=== PATIENT | male | born 1985 | race Caucasian/White ===

== ENCOUNTER 2017-06-20 04:01 | Emergency (ER) | payer OTHER ==
[~2017-06-20] VITALS: Ht 180.3 cm; Wt 114.0 kg
[2017-06-20 05:23] LABS: ALBUMIN 3.9 g/dL (3.2-4.8)
[2017-06-20 05:24] LABS: CHLORIDE 109 mEq/L (99-109); POTASSIUM 4.2 mEq/L (3.7-5.4); SODIUM 137 mEq/L (136-147)
[2017-06-20 05:26] LABS: GLUCOSE 119 mg/dL (70-99); TOTAL PROTEIN 6.6 g/dL (6.4-8.3)
[2017-06-20 05:28] LABS: TOTAL BILIRUBIN 1.3 mg/dL (0.0-1.0)
[2017-06-20 05:29] LABS: ALKALINE PHOSPHATASE 55 IU/L (3-129)
[2017-06-20 05:30] LABS: CREATININE 1.1 mg/dL (0.6-1.3); GFR ESTIMATE (CALCULATED) > 59 mL/min/ (58.99-99999)
[2017-06-20 05:31] LABS: AST (GOT) 28 IU/L (2-34); UREA NITROGEN (BUN) 15 mg/dL (9-23)
[2017-06-20 05:33] LABS: ALT (GPT) 47 IU/L (3-49); LIPASE 15 U/L (1.0-51.0)
[2017-06-20 05:34] LABS: HEMATOCRIT 47.5 % (38.0-50.0); HEMOGLOBIN 16.2 G/DL (12.5-16.6); MCH 27.5 PG (29.0-34.0); MCHC 34.1 G/DL (30.0-36.0); MCV 80.6 FL (86-99); PLATELET COUNT 282 K/uL (156-360); RBC DIS.WIDTH-CV 13.7 % (11.8-14.6); RBC DIS.WIDTH-SD 39.4 % (39-53); RED BLOOD COUNT 5.89 M/uL (4.00-5.50); WHITE BLOOD COUNT 17.1 K/uL (4.1-10.2)
[2017-06-20 07:46] LABS: APPEARANCE CLEAR ((CLEAR)); BILIRUBIN NEGATIVE; BLOOD NEGATIVE; COLOR YELLOW ((YELLOW)); GLUCOSE (STRIP) NEGATIVE; KETONES 20; LEUKOCYTES NEGATIVE; NITRITE NEGATIVE; PROTEIN (STRIP) 100
[2017-06-20] MEDS ORDERED: ZOFRAN ODT4 MG PO (08:02)
[2017-06-20] MEDS ORDERED: BENTYL20 MG PO (08:03)
[2017-06-20 08:06] LABS: SPECIFIC GRAVITY > 1.060 (1.000-1.030)
[2017-06-20 08:12] LABS: BACTERIA NONE SEEN /HPF; EPITHELIAL CELLS NONE SEEN /HPF; MUCUS TRACE /LPF; RED BLOOD CELLS 0-5 /HPF (0-5); UCUL ADDED? NO; WHITE BLOOD CELLS 0-5 /HPF (0-5)
[2017-06-20 08:38] VITALS: BP 121/85
== END 2017-06-20 08:38 | disposition home or self-care (01) ==
LOC: EME 04:01
DX: E86.0 Dehydration (principal); R10.9 Unspecified abdominal pain; D72.829 Elevated white blood cell count, unspecified; F17.200 Nicotine dependence, unspecified, uncomplicated
CPT/HCPCS: 74177; 80053; 81003; 83690; 85027; 99281; 99285; J1885; J2405; J7030

== ENCOUNTER 2017-06-30 20:55 | Emergency (ER) | payer OTHER ==
[~2017-06-30] VITALS: Ht 180.3 cm; Wt 116.1 kg
[~2017-06-30 20:55] MED LIST: BENTYL20 MG PO; ZOFRAN ODT4 MG PO
[2017-06-30 22:14] LABS: HEMATOCRIT 47.6 % (38.0-50.0); MCH 27.6 PG (29.0-34.0); MCHC 33.6 G/DL (30.0-36.0); MCV 82.1 FL (86-99); PLATELET COUNT 344 K/uL (156-360); RBC DIS.WIDTH-CV 14.6 % (11.8-14.6); RBC DIS.WIDTH-SD 41.4 % (39-53); WHITE BLOOD COUNT 10.3 K/uL (4.1-10.2)
[2017-06-30 22:22] LABS: D-DIMER ELISA < 150.00 ng/mLDDU (<230)
[2017-06-30 22:25] LABS: ALBUMIN 3.7 g/dL (3.2-4.8); CHLORIDE 107 mEq/L (99-109); POTASSIUM 3.9 mEq/L (3.7-5.4); SODIUM 140 mEq/L (136-147)
[2017-06-30 22:28] LABS: GLUCOSE 106 mg/dL (70-99); TOTAL PROTEIN 5.9 g/dL (6.4-8.3)
[2017-06-30 22:31] LABS: ALKALINE PHOSPHATASE 53 IU/L (3-129); CREATININE 1.2 mg/dL (0.6-1.3); GFR ESTIMATE (CALCULATED) > 59 mL/min/ (58.99-99999)
[2017-06-30 22:32] LABS: UREA NITROGEN (BUN) 20 mg/dL (9-23)
[2017-06-30 22:33] LABS: AST (GOT) 30 IU/L (2-34)
[2017-06-30 22:34] LABS: ALT (GPT) 58 IU/L (3-49)
[2017-06-30 22:35] LABS: LIPASE 23 U/L (1.0-51.0)
[2017-06-30 23:17] LABS: APPEARANCE CLEAR ((CLEAR)); BILIRUBIN NEGATIVE; BLOOD NEGATIVE; COLOR YELLOW ((YELLOW)); GLUCOSE (STRIP) NEGATIVE; KETONES 5; LEUKOCYTES TRACE; NITRITE NEGATIVE; PROTEIN (STRIP) 100; SPECIFIC GRAVITY 1.028 (1.000-1.030); UROBILINOGEN 0.2 MG/DL (0.2-1.0)
[2017-06-30] MEDS ORDERED: OMEPRAZOLE40 M1 PO (23:29)
[2017-06-30 23:31] LABS: BACTERIA NONE SEEN /HPF; EPITHELIAL CELLS RARE /HPF; MUCUS 1+ /LPF; RED BLOOD CELLS 0-5 /HPF (0-5); UCUL ADDED? NO; WHITE BLOOD CELLS 0-5 /HPF (0-5)
[2017-06-30 23:51] VITALS: BP 135/86
== END 2017-06-30 23:52 | disposition home or self-care (01) ==
LOC: EME 20:55
PROVIDERS: Nurse Practitioner Acute Care
DX: R10.11 Right upper quadrant pain (principal); F17.200 Nicotine dependence, unspecified, uncomplicated; Z88.8 Allergy status to other drugs, medicaments and biological substances
CPT/HCPCS: 76705; 80053; 81003; 83690; 85027; 85379; 99281; 99284

== ENCOUNTER → 2017-07-07 | Outpatient (CLI) | payer OTHER ==
[~2017-07-07] VITALS: Ht 180.3 cm; Wt 115.7 kg
[~2017-07-07] MED LIST changes: +OMEPRAZOLE40 M1 PO
== END | disposition home or self-care (01) ==
LOC: AMB 11:59
PROC: 0DB78ZX Excision of Stomach, Pylorus, Via Natural or Artificial Opening Endoscopic, Diagnostic (ICD-10-PCS; principal; 2017-07-07)
DX: K29.70 Gastritis, unspecified, without bleeding (principal); K44.9 Diaphragmatic hernia without obstruction or gangrene; R10.13 Epigastric pain; R11.10 Vomiting, unspecified; R19.7 Diarrhea, unspecified; I10 Essential (primary) hypertension
CPT/HCPCS: 88305; 88342 TC; J2250

== ENCOUNTER 2017-07-18 16:51 | Inpatient (IN) | payer OTHER ==
[~2017-07-18] VITALS: Ht 180.3 cm; Wt 99.8 kg
[2017-07-18 17:30] LABS: HEMATOCRIT 54.8 % (38.0-50.0); HEMOGLOBIN 18.2 G/DL (12.5-16.6); MCH 27.5 PG (29.0-34.0); MCHC 33.2 G/DL (30.0-36.0); MCV 82.9 FL (86-99); PLATELET COUNT 265 K/uL (156-360); RBC DIS.WIDTH-CV 15.8 % (11.8-14.6); RBC DIS.WIDTH-SD 44.5 % (39-53); RED BLOOD COUNT 6.61 M/uL (4.00-5.50); WHITE BLOOD COUNT 7.8 K/uL (4.1-10.2)
[2017-07-18 17:32] LABS: ALBUMIN 3.6 g/dL (3.2-4.8)
[2017-07-18 17:33] LABS: CHLORIDE 110 mEq/L (99-109); POTASSIUM 4.4 mEq/L (3.7-5.4); SODIUM 139 mEq/L (136-147)
[2017-07-18 17:35] LABS: GLUCOSE 130 mg/dL (70-99); TOTAL PROTEIN 6.2 g/dL (6.4-8.3)
[2017-07-18 17:37] LABS: TOTAL BILIRUBIN 1.1 mg/dL (0.0-1.0)
[2017-07-18 17:38] LABS: ALKALINE PHOSPHATASE 71 IU/L (3-129)
[2017-07-18 17:39] LABS: CREATININE 1.4 mg/dL (0.6-1.3); GFR ESTIMATE (CALCULATED) > 59 mL/min/ (58.99-99999)
[2017-07-18 17:40] LABS: AST (GOT) 28 IU/L (2-34); UREA NITROGEN (BUN) 20 mg/dL (9-23)
[2017-07-18 17:41] LABS: ALT (GPT) 42 IU/L (3-49)
[2017-07-18 17:42] LABS: TROP-I INTERPRETATION NEGATIVE; TROPONIN-I 0.03 ng/mL (0.0-0.30)
[2017-07-18 17:46] LABS: AMYLASE 22 IU/L (1-118)
[2017-07-18 17:54] LABS: LIPASE 917 U/L (1.0-51.0)
[2017-07-18] MEDS ORDERED: CELEXA20 MG PO (19:03)
[2017-07-18] MEDS ORDERED: COREG3.125 M1 PO (19:04)
[2017-07-18] MEDS ORDERED: KLONOPIN1 MG PO (19:04)
[2017-07-18] MEDS ORDERED: LASIX20 MG PO (19:05)
[2017-07-18] MEDS ORDERED: OMEPRAZOLE40 M1 PO (19:07)
[2017-07-18 20:15] LABS: ALBUMIN 3.6 g/dL (3.2-4.8); CHLORIDE 106 mEq/L (99-109); POTASSIUM 4.3 mEq/L (3.7-5.4); SODIUM 142 mEq/L (136-147)
[2017-07-18 20:16] LABS: MAGNESIUM 2.2 mg/dL (1.3-2.7)
[2017-07-18 20:17] LABS: GLUCOSE 112 mg/dL (70-99)
[2017-07-18 20:21] LABS: CREATININE 1.6 mg/dL (0.6-1.3); GFR ESTIMATE (CALCULATED) 54 mL/min/ (58.99-99999); PHOSPHORUS 4.4 mg/dL (2.5-4.9)
[2017-07-18 20:22] LABS: UREA NITROGEN (BUN) 20 mg/dL (9-23)
[2017-07-18 20:28] LABS: TROP-I INTERPRETATION NEGATIVE; TROPONIN-I 0.03 ng/mL (0.0-0.30)
[2017-07-18 21:05] VITALS: BP 123/80
[2017-07-18 23:59] VITALS: BP 123/78
[2017-07-19 00:04] LABS: APPEARANCE CLEAR ((CLEAR)); BILIRUBIN NEGATIVE; BLOOD SMALL; COLOR YELLOW ((YELLOW)); GLUCOSE (STRIP) NEGATIVE; KETONES NEGATIVE; LEUKOCYTES NEGATIVE; NITRITE NEGATIVE; PROTEIN (STRIP) NEGATIVE; UROBILINOGEN 0.2 MG/DL (0.2-1.0)
[2017-07-19 00:10] LABS: BACTERIA NONE SEEN /HPF; EPITHELIAL CELLS RARE /HPF; MUCUS TRACE /LPF; RED BLOOD CELLS 0-5 /HPF (0-5); UCUL ADDED? NO; WHITE BLOOD CELLS 0-5 /HPF (0-5)
[2017-07-19 00:59] LABS: TROP-I INTERPRETATION NEGATIVE; TROPONIN-I 0.04 ng/mL (0.0-0.30)
[2017-07-19 01:50] LABS: BENZODIAZEPINES, URINE SCREEN Negative (200 ng/mL)
[2017-07-19 03:47] VITALS: BP 120/77
[2017-07-19 05:58] LABS: HEMATOCRIT 51.3 % (38.0-50.0); HEMOGLOBIN 16.7 G/DL (12.5-16.6); MCH 27.5 PG (29.0-34.0); MCHC 32.6 G/DL (30.0-36.0); MCV 84.4 FL (86-99); PLATELET COUNT 221 K/uL (156-360); RBC DIS.WIDTH-CV 15.2 % (11.8-14.6); RBC DIS.WIDTH-SD 45.2 % (39-53); RED BLOOD COUNT 6.08 M/uL (4.00-5.50); WHITE BLOOD COUNT 7.5 K/uL (4.1-10.2)
[2017-07-19 06:14] LABS: TROP-I INTERPRETATION NEGATIVE; TROPONIN-I 0.04 ng/mL (0.0-0.30)
[2017-07-19 07:23] VITALS: BP 121/76
[2017-07-19 11:27] VITALS: BP 112/67
[2017-07-19 15:32] VITALS: BP 123/74
[2017-07-19 20:00] VITALS: BP 103/62
[2017-07-19 23:53] VITALS: BP 112/67
[2017-07-20] VITALS (12 sets, daily range): BP systolic 93–130; BP diastolic 59–82
[2017-07-20 05:51] LABS: HEMATOCRIT 52.3 % (38.0-50.0); HEMOGLOBIN 16.8 G/DL (12.5-16.6); MCH 26.9 PG (29.0-34.0); MCHC 32.1 G/DL (30.0-36.0); MCV 83.7 FL (86-99); PLATELET COUNT 214 K/uL (156-360); RBC DIS.WIDTH-CV 14.6 % (11.8-14.6); RBC DIS.WIDTH-SD 44.2 % (39-53); RED BLOOD COUNT 6.25 M/uL (4.00-5.50); WHITE BLOOD COUNT 7.2 K/uL (4.1-10.2)
[2017-07-20 06:19] LABS: IMMUNOGLOBULIN G 968 MG/DL (650-1600); IMMUNOGLOBULIN M 50 MG/DL (50-300)
[2017-07-20 06:20] LABS: CHLORIDE 106 MEQ/L (99-109); CREATININE 1.9 MG/DL (0.6-1.3); GFR ESTIMATE (CALCULATED) 44 mL/min/ (58.99-99999); GLUCOSE 96 mg/dL (70-99); HDL CHOLESTEROL 22 MG/DL (Desirable>=40); LDL CHOLESTEROL 43 mg/dL (Desirable<100); LIPASE 47 U/L (1.0-51.0); NON-HDL CHOLESTEROL 59 mg/dL (Desirable<160); POTASSIUM 3.8 MEQ/L (3.7-5.4); SODIUM 142 MEQ/L (136-147); TOTAL CHOLESTEROL 81 mg/dL (Desirable<200); TRIGLYCERIDES 82 MG/DL (Normal: <150); UREA NITROGEN (BUN) 25 mg/dL (9-23)
[2017-07-21] VITALS (29 sets, daily range): BP systolic 94–139; BP diastolic 58–96
[2017-07-21 05:20] LABS: HEMATOCRIT 45.3 % (38.0-50.0); MCH 26.9 PG (29.0-34.0); MCHC 32.7 G/DL (30.0-36.0); MCV 82.4 FL (86-99); PLATELET COUNT 188 K/uL (156-360); RBC DIS.WIDTH-CV 13.9 % (11.8-14.6); RBC DIS.WIDTH-SD 41.7 % (39-53); WHITE BLOOD COUNT 7.4 K/uL (4.1-10.2)
[2017-07-21 05:21] LABS: HEMOGLOBIN 14.8 G/DL (12.5-16.6)
[2017-07-21 05:34] LABS: CHLORIDE 106 MEQ/L (99-109); CREATININE 1.5 MG/DL (0.6-1.3); GFR ESTIMATE (CALCULATED) 58 mL/min/ (58.99-99999); GLUCOSE 89 mg/dL (70-99); POTASSIUM 3.3 MEQ/L (3.7-5.4); SODIUM 141 MEQ/L (136-147); UREA NITROGEN (BUN) 23 mg/dL (9-23)
[2017-07-21 20:45] LABS: ERYTHROPOIETIN+ 10.8 mIU/mL (2.6-18.5)
[2017-07-22] VITALS (25 sets, daily range): BP systolic 106–145; BP diastolic 66–95
[2017-07-22 05:48] LABS: CHLORIDE 109 MEQ/L (99-109); CREATININE 1.3 MG/DL (0.6-1.3); GFR ESTIMATE (CALCULATED) > 59 mL/min/ (58.99-99999); GLUCOSE 94 mg/dL (70-99); MAGNESIUM 1.9 mg/dl (1.3-2.7); SODIUM 139 MEQ/L (136-147); UREA NITROGEN (BUN) 18 mg/dL (9-23)
[2017-07-22 05:51] LABS: POTASSIUM 4.1 MEQ/L (3.7-5.4)
[2017-07-22 17:11] LABS: MUMPS IgM+ <1:20 (<1:20)
[2017-07-23] VITALS (14 sets, daily range): BP systolic 99–128; BP diastolic 57–99
[2017-07-23 08:01] LABS: HEMATOCRIT 51.7 % (38.0-50.0); HEMOGLOBIN 16.6 G/DL (12.5-16.6); MCH 26.9 PG (29.0-34.0); MCHC 32.1 G/DL (30.0-36.0); MCV 83.7 FL (86-99); PLATELET COUNT 231 K/uL (156-360); RBC DIS.WIDTH-CV 15.1 % (11.8-14.6); RBC DIS.WIDTH-SD 44.8 % (39-53); RED BLOOD COUNT 6.18 M/uL (4.00-5.50)
[2017-07-23 08:24] LABS: CHLORIDE 108 MEQ/L (99-109); CREATININE 1.3 MG/DL (0.6-1.3); GFR ESTIMATE (CALCULATED) > 59 mL/min/ (58.99-99999); GLUCOSE 111 mg/dL (70-99); PHOSPHORUS 3.8 mg/dL (2.5-4.9); POTASSIUM 4.4 MEQ/L (3.7-5.4); SODIUM 142 MEQ/L (136-147); UREA NITROGEN (BUN) 18 mg/dL (9-23)
[2017-07-24 03:53] VITALS: BP 122/65
[2017-07-24 06:22] LABS: CHLORIDE 107 MEQ/L (99-109); CREATININE 1.3 MG/DL (0.6-1.3); GFR ESTIMATE (CALCULATED) > 59 mL/min/ (58.99-99999); GLUCOSE 100 mg/dL (70-99); POTASSIUM 4.5 MEQ/L (3.7-5.4); SODIUM 144 MEQ/L (136-147); UREA NITROGEN (BUN) 19 mg/dL (9-23)
[2017-07-24 07:45] VITALS: BP 115/74
[2017-07-24] MEDS ORDERED: DIGOXIN125 MCG PO (12:02)
[2017-07-24] MEDS ORDERED: ENTRESTO 24 MG1 EACH PO (12:02)
[2017-07-24] MEDS ORDERED: CARVEDILOL6.25 MG PO (12:02)
[2017-07-24] MEDS ORDERED: LASIX20 MG PO (12:03)
[2017-07-24 15:59] LABS: JAK2 Mutation Result NOT DETECTED (())
[2017-07-24 16:31] LABS: JAK2 Exon 12 Mutation NOT DETECTED (())
== END 2017-07-24 12:58 | disposition home or self-care (01) | DRG 291 ==
LOC: EME 16:51 → 5SOUTH 18:44 → EDOF 18:44 → ENRESERV 18:49 → 5SOUTH 21:00 → ENRESERV 07-20 15:54 → 4WEST 07-20 16:13 → ENRESERV 07-23 09:37 → 5SOUTH 07-23 11:18
PROVIDERS: Hospitalist; Internal Medicine; Internal Medicine Cardiovascular Disease; Internal Medicine Critical Care Medicine; Internal Medicine Gastroenterology; Nurse Practitioner Family
DX: I13.0 Hypertensive heart and chronic kidney disease with heart failure and stage 1 through stage 4 chronic kidney disease, or unspecified chronic kidney disease (principal); I50.23 Acute on chronic systolic (congestive) heart failure; I50.82 Biventricular heart failure; N17.9 Acute kidney failure, unspecified; T50.2X5A Adverse effect of carbonic-anhydrase inhibitors, benzothiadiazides and other diuretics, initial encounter; E87.6 Hypokalemia; N18.9 Chronic kidney disease, unspecified; D75.1 Secondary polycythemia; R74.8 Abnormal levels of other serum enzymes; I42.0 Dilated cardiomyopathy; K21.9 Gastro-esophageal reflux disease without esophagitis; G43.909 Migraine, unspecified, not intractable, without status migrainosus; R00.0 Tachycardia, unspecified; F17.200 Nicotine dependence, unspecified, uncomplicated; E66.9 Obesity, unspecified; G47.33 Obstructive sleep apnea (adult) (pediatric); Z68.34 Body mass index [BMI] 34.0-34.9, adult
CPT/HCPCS: 71046; 74176; 76705; 78227; 80048; 80053; 80061; 80069; 80306 90; 81003; 81270 90; 82150; 82668 90; 82784; 83690; 83735; 83880; 84100; 84484; 85027; 86038; 86664; 86665; 86735 90; 87040; 87641; 93005; 93970; 94799; 99281; 99285; A9537; J1940; J1956; J2260; J2805; J7040; S0030